=== PATIENT | male | born 1940 | race Caucasian/White ===

== ENCOUNTER 2017-09-30 11:51 | Observation (INO) | payer MEDICARE, OTHER ==
--- NOTE | 2017-09-30 12:42 | EDM.PDOC ---
ED HPI GENERAL MEDICAL PROBLEM - General Chief Complaint: Lower Extremity Injury/Pain Stated Complaint: FOOT SWELLING BLOOD CLOT [id number] Time Seen by Provider: 09/30/17 12:30 Source of Information: Reports: Patient, Old Records, RN, RN Notes Reviewed History Limitations: Reports: Other (confusion/dementia) - History of Present Illness INITIAL COMMENTS - FREE TEXT/NARRATIVE: Pt presents to ER from home by POV with c/o left leg swelling and tenderness. Records review reveals pt was seen in clinic by Dr. Avalos on September 21, 2017 for the same complaint, had an US and was found to have a left lower extremity DVT. Pt does not recall being seen in clinic, he states "maybe I did see the doctor, I don't remember". He was prescribed Xarelto. The pharmacy confirms that the pt did hand picker the medication, but he states he knows "nothing about a blood clot, or a new medicine". Pt has Hx of dementia. 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 Pt denies chest pain, shortness of breath, or any other symptoms. Pt is unable to provide any further history. Onset: Unknown/Unsure Duration: Constant Location: Reports: Lower Extremity, Left Severity: Moderate Improves with: Reports: None Associated Symptoms: Reports: No Other Symptoms - Related Data Allergies Allergy/AdvReac Type Severity Reaction Status Date / Time lisinopril Allergy Cannot Verified 09/30/17 12:20 Remember Penicillins Allergy Cannot Verified 09/30/17 12:20 Remember atenolol AdvReac Nausea and Verified 09/30/17 12:20 Vomiting calcium containing cmpd Allergy Cannot Uncoded 09/30/17 12:20 Remember Home Meds: Home Meds Amitriptyline [Elavil] 50 mg PO BEDTIME 08/04/13 [History] Aspirin [Delilah Chewable] 81 mg PO DAILY 08/04/13 [History] Diltiazem HCl [Diltiazem 24Hr ER] 240 mg PO DAILY 08/04/13 [History] Famotidine [Pepcid] 20 mg PO BID 08/04/13 [History] Hydrochlorothiazide 25 mg PO DAILY 08/04/13 [History] Isosorbide Dinitrate 30 mg PO DAILY 08/04/13 [History] Metoprolol Tartrate 100 mg PO BID 08/04/13 [History] Polyethylene Glycol 3350 [MiraLAX] 17 gm PO DAILY 08/04/13 [History] Sennosides [Senna] 2 tab PO BEDTIME 08/04/13 [History] Simvastatin [Zocor] 10 mg PO BEDTIME 08/04/13 [History] Sulindac [Clinoril] 200 mg PO BIDM 08/04/13 [History] hydrALAZINE [Apresoline] 10 mg PO Q8H 08/04/13 [History] Rivaroxaban [Xarelto] 15 mg PO DAILY 09/30/17 [History] Past Medical History Cardiovascular History: Reports: None, Afib, CAD, Hypertension Genitourinary History: Reports: Retention, Urinary Neurological History: Reports: CVA Other Neuro History: subdural hematoma Psychiatric History: Reports: Dementia, Other (See Below) Other Psychiatric History: debility Hematologic History: Reports: Other (See Below) Other Hematologic History: thrombocytonpenia,erythroctosis - Past Surgical History Neurological Surgical History: Reports: Other (See Below) Other Neurological Surgeries/Procedures: craniotomy Social & Family History - Family History Family Medical History: Unobtainable (pt unsure) - Living Situation & Occupation Living situation: Reports: Single, with Family (with brother) Occupation: Retired Review of Systems - Review of Systems Review Of Systems: ROS reveals no pertinent complaints other than HPI. ED EXAM, GENERAL - Physical Exam Exam: See Below Exam Limited By: Altered Mental Status (confusion/dementia) General Appearance: Alert, WD/WN, No Apparent Distress Nose: Normal Inspection Throat/Mouth: Normal Inspection, Normal Voice, No Airway Compromise Head: Atraumatic, Normocephalic Neck: Normal Inspection, Supple, Non-Tender, Full Range of Motion Respiratory/Chest: No Respiratory Distress, Lungs Clear, Normal Breath Sounds, No Accessory Muscle Use, Chest Non-Tender Cardiovascular: Regular Rate, Rhythm GI/Abdominal: Normal Bowel Sounds, Soft, Non-Tender (Male) Exam: Deferred Rectal (Males) Exam: Deferred Back Exam: Normal Inspection, Full Range of Motion Extremities: Normal Range of Motion, Normal Capillary Refill, Jyoti's Sign (left ), Other (Rt lower extremity is normal to exam, non-tender, no edema). No: Joint Swelling Neurological: Alert, CN II-XII Intact, Normal Gait, No Motor/Sensory Deficits, Memory Loss Recent Events Psychiatric: Normal Affect, Normal Mood Skin Exam: Warm, Dry, Intact, Normal Color, No Rash Course - Vital Signs Last Recorded V/S: Last Vital Signs Temp 36.7 C 09/30/17 12:46 Pulse 86 09/30/17 12:46 Resp 12 09/30/17 12:46 BP 223/127 H 09/30/17 12:46 Pulse Ox 95 09/30/17 12:46 - Orders/Labs/Meds Orders: Active Orders 24 hr Category Date Time Status Metoprolol Tartrate [Lopressor] Med 09/30/17 13:05 Once 50 mg PO ONETIME ONE hydrALAZINE [Apresoline] Med 09/30/17 13:04 Once 25 mg PO ONETIME ONE Meds: Medications Discontinued Medications Generic Name Dose Route Start Last Admin Trade Name Freq PRN Reason Stop Dose Admin Enoxaparin Sodium 100 mg 09/30/17 13:03 Lovenox SUBCUT 09/30/17 13:04 ONETIME ONE - Radiology Interpretation Free Text/Narrative:: Left lower extremity venous duplex US from [facility] dated 09/21/17 reviewed by me, and copied to chart. Departure - Departure Time of Disposition: 13:09 (admit to Dr. Reynolds) Disposition: Refer to Observation Condition: Fair Clinical Impression: Hypertension, uncontrolled, Noncompliance w/medication treatment due to intermit use of medication Left leg DVT Qualifiers: Affected thrombotic vein of extremity: femoral Chronicity: acute Qualified Code (s): I82.412 - Acute embolism and thrombosis of left femoral vein Dementia Qualifiers: Dementia type: unspecified type Dementia behavioral disturbance: without behavioral disturbance Qualified Code(s): F03.90 - Unspecified dementia without behavioral disturbance - Discharge Information Forms: ED Department Discharge - My Orders Last 24 Hours: My Active Orders 09/30/17 13:04 hydrALAZINE [Apresoline] 25 mg PO ONETIME ONE 09/30/17 13:05 Metoprolol Tartrate [Lopressor] 50 mg PO ONETIME ONE - Assessment/Plan Last 24 Hours: My Active Orders 09/30/17 13:04 hydrALAZINE [Apresoline] 25 mg PO ONETIME ONE 09/30/17 13:05 Metoprolol Tartrate [Lopressor] 50 mg PO ONETIME ONE
[2017-09-30] MEDS ORDERED: Enoxaparin 100 MG/1 ML Syringe SUBCUT ONE (13:03)
[2017-09-30] MEDS ORDERED: hydrALAZINE 25 MG Tab PO ONE (13:04)
[2017-09-30] MEDS ORDERED: Metoprolol Tartrate 50 MG Tab PO ONE (13:05)
[2017-09-30] MEDS ORDERED: oxyCODONE 5 MG Tab PO PRN (15:13)
[2017-09-30] MEDS ORDERED: Acetaminophen 325 MG Tab PO PRN (15:13)
[2017-09-30] MEDS ORDERED: Morphine 2 MG/ML Syringe IVPUSH PRN (15:13)
--- NOTE | 2017-09-30 15:25 | PCM.HP ---
H&P History of Present Illness - General Date of Service: 09/30/17 Admit Problem/Dx: Admission Diagnosis/Problem Admission Diagnosis/Problem DVT, Deep venous thrombosis of lower extremity Source of Information: Patient History Limitations: Reports: Other (Dementia) - History of Present Illness Initial Comments - Free Text/Narative: 77-year-old male with a past medical history of high blood pressure, hyperlipidemia, dementia presents with left leg swelling. Medical Records review reveals that the patient was seen in clinic by Dr. Avalos on September 21, 2017 for the same complaint and he was diagnosed with a left lower extremity DVT. This was confirmed with an ultrasound. She was prescribed Xarelto and pharmacy confirms that he picked up the medication. The patient however does not recall being seen in clinic a week ago. He does not recall seeing a doctor for his present complaints and does not recall being prescribed any new medication. The patient has a history of dementia. 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 He states he is able to do his ADLs and some of his IADLs. He states he does not drive but that his brother drives. He cannot recall his age, and during conversation easily gets confused Pt denies chest pain, shortness of breath, palpitations, abdominal pain, or any other symptoms. - Related Data Allergies/Adverse Reactions: Allergies Allergy/AdvReac Type Severity Reaction Status Date / Time lisinopril Allergy Cannot Verified 09/30/17 12:20 Remember Penicillins Allergy Cannot Verified 09/30/17 12:20 Remember atenolol AdvReac Nausea and Verified 09/30/17 12:20 Vomiting calcium containing cmpd Allergy Cannot Uncoded 09/30/17 12:20 Remember Home Medications: Home Meds Famotidine [Pepcid] 20 mg PO BID 08/04/13 [History] Metoprolol Tartrate 100 mg PO BID 08/04/13 [History] Polyethylene Glycol 3350 [MiraLAX] 17 gm PO DAILY 08/04/13 [History] Sennosides [Senna] 2 tab PO BEDTIME 08/04/13 [History] hydrALAZINE [Apresoline] 10 mg PO Q8H 08/04/13 [History] Chlorthalidone 25 mg PO DAILY 09/30/17 [History] Diltiazem HCl [Cartia Xt] 240 mg PO DAILY 09/30/17 [History] Gabapentin [Neurontin] 300 mg PO BEDTIME 09/30/17 [History] Isosorbide Mononitrate [Isosorbide Mononitrate ER] 30 mg PO DAILY 09/30/17 [ History] Nortriptyline 50 mg PO BEDTIME 09/30/17 [History] Potassium Chloride 20 meq PO DAILY 09/30/17 [History] Rivaroxaban [Xarelto] 15 mg PO DAILY 09/30/17 [History] atorvaSTATin [Lipitor] 10 mg PO DAILY 09/30/17 [History] Past Medical History Cardiovascular History: Reports: Afib, CAD, Hypertension Genitourinary History: Reports: Retention, Urinary, Urinary Incontinence Musculoskeletal History: Reports: Fracture, Other (See Below) Other Musculoskeletal History: "broke leg, unsure which one" Neurological History: Reports: CVA Other Neuro History: subdural hematoma Psychiatric History: Reports: Dementia, Other (See Below) Other Psychiatric History: debility Hematologic History: Reports: Other (See Below) Other Hematologic History: thrombocytonpenia,erythroctosis - Past Surgical History HEENT Surgical History: Reports: Adenoidectomy, Tonsillectomy Cardiovascular Surgical History: Reports: None GI Surgical History: Reports: Appendectomy, Colonoscopy Male Surgical History: Reports: None Neurological Surgical History: Reports: Other (See Below) Other Neurological Surgeries/Procedures: craniotomy Musculoskeletal Surgical History: Reports: None Social & Family History - Family History Family Medical History: Unobtainable - Tobacco Use Smoking Status *Q: Former Smoker Used Tobacco, but Quit: Yes Month/Year Tobacco Last Used: 2009 - Caffeine Use Caffeine Use: Reports: Coffee - Recreational Drug Use Recreational Drug Use: No - Living Situation & Occupation Living situation: Reports: Single, with Family (with brother) Occupation: Retired H&P Review of Systems - Review of Systems: Review Of Systems: ROS reveals no pertinent complaints other than HPI. Exam - Exam Exam: See Below - Vital Signs Vital Signs: Last Vital Signs Temp 36.4 C 09/30/17 13:40 Pulse 76 09/30/17 13:40 Resp 20 09/30/17 13:40 BP 207/118 H 09/30/17 13:40 Pulse Ox 97 09/30/17 13:40 Weight: 96.162 kg - Exam General: Alert HEENT: Conjunctiva Clear Neck: Supple Lungs: Clear to Auscultation Cardiovascular: Regular Rate, Regular Rhythm GI/Abdominal Exam: Normal Bowel Sounds (Male) Exam: No Hernia Extremities: Other (Left lower leg swelling, mild tenderness) Problem List Initiated/Reviewed/Updated: Yes Orders Last 24hrs: Active Orders 24 hr Category Date Time Status Patient Status [ADT] Routine ADT 09/30/17 15:13 Ordered Oxygen Therapy [RC] PRN Care 09/30/17 15:13 Ordered VTE/DVT Education [RC] PER UNIT ROUTINE Care 09/30/17 15:13 Ordered Vital Signs [RC] Q4H Care 09/30/17 15:13 Ordered Consult to Case Management [CONS] Routine Cons 09/30/17 15:13 Ordered Consult to Appliance Service Representative [CONS] Routine Cons 09/30/17 15:13 Ordered Regular Diet [DIET] Diet 09/30/17 Dinner Ordered Acetaminophen [Tylenol] Med 09/30/17 15:13 Ordered 650 mg PO Q4H PRN Chlorthalidone Med 10/01/17 09:00 Ordered 25 mg PO DAILY Diltiazem HCl [Cartia Xt] Med 10/01/17 09:00 Ordered 240 mg PO DAILY Famotidine [Pepcid] Med 09/30/17 21:00 Ordered 20 mg PO BID Gabapentin [Neurontin] Med 09/30/17 21:00 Ordered 300 mg PO BEDTIME Isosorbide Mononitrate [Imdur] Med 10/01/17 09:00 Ordered 30 mg PO DAILY Metoprolol Tartrate Med 09/30/17 21:00 Ordered 100 mg PO BID Morphine Med 09/30/17 15:13 Ordered 2 mg IVPUSH Q2H PRN Nortriptyline Med 09/30/17 21:00 Ordered 50 mg PO BEDTIME Polyethylene Glycol 3350 [MiraLAX] Med 10/01/17 09:00 Ordered 17 gm PO DAILY Potassium Chloride [Potassium Chloride] Med 10/01/17 09:00 Ordered 20 meq PO DAILY Rivaroxaban Med 09/30/17 21:00 Ordered 15 mg PO BID Sennosides [Senna] Med 09/30/17 21:00 Ordered 2 tab PO BEDTIME atorvaSTATin [Lipitor] Med 10/01/17 09:00 Ordered 10 mg PO DAILY hydrALAZINE [Apresoline] Med 09/30/17 15:30 Ordered 10 mg PO Q8H oxyCODONE Med 09/30/17 15:13 Ordered 5 mg PO Q4H PRN Resuscitation Status Routine Resus Stat 09/30/17 15:13 Ordered Medication Orders Acetaminophen (Tylenol) 650 mg PO Q4H PRN PRN Reason: Pain (Mild 1-3)/fever Atorvastatin Calcium (Lipitor) 10 mg PO DAILY [facility] Chlorthalidone (Chlorthalidone) 25 mg PO DAILY NIA Famotidine (Pepcid) 20 mg PO BID NIA Gabapentin (Neurontin) 300 mg PO BEDTIME NIA Isosorbide Mononitrate (Imdur) 30 mg PO DAILY [facility] Morphine Sulfate (Morphine) 2 mg IVPUSH Q2H PRN PRN Reason: Pain (severe 7-10) Non-Formulary Medication (Diltiazem Hcl [Cartia Xt]) 240 mg PO DAILY [facility] Non-Formulary Medication (Hydralazine [Apresoline]) 10 mg PO Q8H [facility]IA Non-Formulary Medication (Metoprolol Tartrate) 100 mg PO BID [facility] Non-Formulary Medication (Potassium Chloride [Potassium Chloride]) 20 meq PO DAILY [facility] Non-Formulary Medication (Rivaroxaban) 15 mg PO BID [facility]IA Non-Formulary Medication (Sennosides [Senna]) 2 tab PO BEDTIME NIA Nortriptyline HCl (Nortriptyline) 50 mg PO BEDTIME NIA Oxycodone HCl (Oxycodone) 5 mg PO Q4H PRN PRN Reason: Pain (moderate 4-6) Polyethylene Glycol (Miralax) 17 gm PO DAILY [facility] Assessment/Plan Comment:: #Left lower extremity DVT Start several to 50 mg twice a day for 3 weeks, then 20 mg daily for at least 3 months sample worker consult for home care #Uncontrolled essential hypertension It's very likely that the patient is not taking medications at home due to his dementia sample worker consult for home care Restart home blood pressure medication #Dementia Avoid delirium during hospital admission Avoid benzodiazepines #Hyperlipidemia Continue statin
[2017-09-30] MEDS ORDERED: Non-Formulary Medication 1 Each (Hydralazine [Apresoline] 10 MG) PO SCH (15:30)
[2017-09-30] MEDS ORDERED: amLODIPine 5 MG Tab PO ONE (16:38)
[2017-09-30 17:28] LABS: ANION GAP 11.7; CHLORIDE,CL 104 mmol/L (101-111); SODIUM,NA 139 mmol/L (135-145)
[2017-09-30] MEDS ORDERED: hydrALAZINE 25 MG Tab PO SCH (18:00)
[2017-09-30] MEDS: Metoprolol Tartrate 50 MG Tab PO SCH (20:44)
[2017-09-30] MEDS: Famotidine 20 MG Tab PO SCH (20:49)
[2017-09-30] MEDS: Rivaroxaban 10 MG Tab PO SCH (20:49)
[2017-09-30] MEDS ORDERED: Gabapentin 300 MG Cap PO SCH (21:00)
[2017-09-30] MEDS ORDERED: Nortriptyline 25 MG Cap PO SCH (21:00)
[2017-09-30] MEDS: hydrALAZINE 25 MG Tab PO SCH (22:11)
[2017-10-01] MEDS: hydrALAZINE 25 MG Tab PO SCH (05:53)
[2017-10-01] MEDS ORDERED: Diltiazem 240 MG Cap.ER PO SCH (09:00)
[2017-10-01] MEDS ORDERED: Isosorbide Mononitrate 30 MG Tab.ER PO SCH (09:00)
[2017-10-01] MEDS ORDERED: atorvaSTATin 10 MG Tab PO SCH (09:00)
[2017-10-01] MEDS ORDERED: Potassium Chloride 10 MEQ Tab.ER PO SCH (09:00)
[2017-10-01] MEDS ORDERED: Polyethylene Glycol 3350 Powder 17 GM Packet PO SCH (09:00)
[2017-10-01] MEDS ORDERED: Chlorthalidone 25 MG Tab PO SCH (09:00)
[2017-10-01] MEDS: Famotidine 20 MG Tab PO SCH (10:06)
[2017-10-01] MEDS: Metoprolol Tartrate 50 MG Tab PO SCH (10:07)
[2017-10-01] MEDS: Rivaroxaban 10 MG Tab PO SCH (10:08)
--- NOTE | 2017-10-01 10:59 | PCM.DCSUM1 ---
Discharge Summary - Hospital Course Free Text/Narrative:: 77-year-old male with a past medical history of high blood pressure, hyperlipidemia, dementia presents with left leg swelling. Medical Records review reveals that the patient was seen in clinic by Dr. Avalos on September 21, 2017 for the same complaint and he was diagnosed with a left lower extremity DVT. This was confirmed with an ultrasound. She was prescribed Xarelto and pharmacy confirms that he picked up the medication. The patient however does not recall being seen in clinic a week ago. He does not recall seeing a doctor for his present complaints and does not recall being prescribed any new medication. The patient has a history of dementia. 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 He states he is able to do his ADLs and some of his IADLs. He states he does not drive but that his brother drives. He cannot recall his age, and during conversation easily gets confused Pt denies chest pain, shortness of breath, palpitations, abdominal pain, or any other symptoms. During the admission, the patient's blood pressure was elevated. He was given oral medications and blood pressure responded appropriately. It is very likely that the patient has not been taking his blood pressure medication at home due to dementia. The patient's sister was called. Patient's brother was also present at bedside. Home health services were arranged by the show worker. Xarelto prescription was corrected to 15 mg twice a day for 21 days, and then 20 mg daily for at least 3 months. - Discharge Data Discharge Date: 10/01/17 Discharge Disposition: Home, Self-Care 01 Condition: Good - Patient Summary/Data Consults: Consultations 09/30/17 15:13 Consult to Case Management [CONS] Routine Consult to Manager Math [CONS] Routine - Patient Instructions Diet: Regular Diet as Tolerated Activity: As Tolerated Showering/Bathing: May Shower - Discharge Plan Prescriptions/Med Rec: Rivaroxaban [Xarelto] 15 mg PO BID 21 Days #42 tablet Home Medications: Home Meds Famotidine [Pepcid] 20 mg PO BID 08/04/13 [History] Metoprolol Tartrate 100 mg PO BID 08/04/13 [History] Polyethylene Glycol 3350 [MiraLAX] 17 gm PO DAILY 08/04/13 [History] Sennosides [Senna] 2 tab PO BEDTIME 08/04/13 [History] hydrALAZINE [Apresoline] 10 mg PO Q8H 08/04/13 [History] Aspirin [Halfprin] 81 mg PO DAILY 09/30/17 [History] Chlorthalidone 25 mg PO DAILY 09/30/17 [History] Diltiazem HCl [Cartia Xt] 240 mg PO DAILY 09/30/17 [History] Gabapentin [Neurontin] 300 mg PO BEDTIME 09/30/17 [History] Isosorbide Mononitrate [Isosorbide Mononitrate ER] 30 mg PO DAILY 09/30/17 [ History] Nortriptyline 50 mg PO BEDTIME 09/30/17 [History] Potassium Chloride 20 meq PO DAILY 09/30/17 [History] atorvaSTATin [Lipitor] 10 mg PO DAILY 09/30/17 [History] Rivaroxaban [Xarelto] 15 mg PO BID 21 Days #42 tablet 10/01/17 [Rx] Forms: ED Department Discharge Referrals: Bridger Cassidy MD [Primary Care Provider] - - Discharge Summary/Plan Comment DC Time >30 min.: Yes - Patient Data Vitals - Most Recent: Last Vital Signs Temp 36.3 C 10/01/17 07:00 Pulse 72 10/01/17 10:07 Resp 20 10/01/17 07:00 BP 145/91 H 10/01/17 10:07 Pulse Ox 92 L 10/01/17 07:00 Weight - Most Recent: 94.075 kg I&O - Last 24 hours: Intake & Output 09/30/17 10/01/17 10/01/17 22:59 06:59 14:59 Intake Total 400 150 Balance 400 150 Lab Results - Last 24 hrs: Laboratory Results - last 24 hr 09/30/17 Range/Units 17:02 Sodium 139 (135-145) mmol/L Potassium 3.7 (3.6-5.0) mmol/L Chloride 104 (101-111) mmol/L Carbon Dioxide 27.0 (21.0-31.0) mmol/L Anion Gap 11.7 BUN 15 (7-18) mg/dL Creatinine 0.7 (0.6-1.3) mg/dL Est Cr Clr Drug Dosing 95.46 mL/min Estimated GFR (MDRD) > 60 Glucose TNP Calcium 9.2 (8.4-10.2) mg/dl Med Orders - Current: Current Medications Acetaminophen (Tylenol) 650 mg PO Q4H PRN PRN Reason: Pain (Mild 1-3)/fever Atorvastatin Calcium (Lipitor) 10 mg PO DAILY [facility] Last Admin: 10/01/17 10:06 Dose: 10 mg Chlorthalidone (Chlorthalidone) 25 mg PO DAILY [facility] Last Admin: 10/01/17 10:05 Dose: 25 mg Diltiazem HCl (Dilacor Xr) 240 mg PO DAILY [facility] Famotidine (Pepcid) 20 mg PO BID [facility] Last Admin: 10/01/17 10:06 Dose: 20 mg Gabapentin (Neurontin) 300 mg PO BEDTIME [facility] Last Admin: 09/30/17 20:48 Dose: 300 mg Hydralazine HCl (Apresoline) 25 mg PO Q8H [facility] Last Admin: 10/01/17 05:53 Dose: 25 mg Isosorbide Mononitrate (Imdur) 30 mg PO DAILY [facility] Last Admin: 10/01/17 10:06 Dose: 30 mg Metoprolol Tartrate (Lopressor) 100 mg PO BID [facility] Last Admin: 10/01/17 10:07 Dose: 100 mg Nortriptyline HCl (Nortriptyline) 50 mg PO BEDTIME [facility] Last Admin: 09/30/17 20:47 Dose: 50 mg Oxycodone HCl (Oxycodone) 5 mg PO Q4H PRN PRN Reason: Pain (moderate 4-6) Polyethylene Glycol (Miralax) 17 gm PO DAILY [facility] Last Admin: 10/01/17 10:08 Dose: 17 gm Potassium Chloride (Klor-Con 10) 20 meq PO DAILY [facility] Last Admin: 10/01/17 10:07 Dose: 20 meq Rivaroxaban (Xarelto) 15 mg PO BID [facility] Last Admin: 10/01/17 10:08 Dose: 15 mg Senna/Docusate Sodium (Senna Plus) 2 tab PO BEDTIME [facility] Last Admin: 09/30/17 20:48 Dose: 2 tab Discontinued Medications Amlodipine Besylate (Norvasc) 10 mg PO ONETIME ONE Stop: 09/30/17 16:39 Last Admin: 09/30/17 17:02 Dose: 10 mg Enoxaparin Sodium (Lovenox) 100 mg SUBCUT ONETIME ONE Stop: 09/30/17 13:04 Last Admin: 09/30/17 13:27 Dose: 100 mg Hydralazine HCl (Apresoline) 25 mg PO ONETIME ONE Stop: 09/30/17 13:05 Last Admin: 09/30/17 13:27 Dose: 25 mg Hydralazine HCl (Apresoline) 25 mg PO Q8H [facility] Last Admin: 09/30/17 19:29 Dose: Not Given Metoprolol Tartrate (Lopressor) 50 mg PO ONETIME ONE Stop: 09/30/17 13:06 Last Admin: 09/30/17 13:17 Dose: 50 mg Morphine Sulfate (Morphine) 2 mg IVPUSH Q2H PRN PRN Reason: Pain (severe 7-10) Non-Formulary Medication (Hydralazine [Apresoline]) 10 mg PO Q8H [facility] Last Admin: 09/30/17 19:30 Dose: Not Given
[2017-10-01 11:10] VITALS: BP 121/82
== END 2017-10-01 13:30 | disposition home or self-care (01) ==
LOC: DL.ED 11:51 → INTOOBSV 13:09 → DL.MS 13:09
PROVIDERS: ADMIT Hospitalist; ATTEND Hospitalist
DX: I82.402 Acute embolism and thrombosis of unspecified deep veins of left lower extremity (principal); I10 Essential (primary) hypertension; I25.10 Atherosclerotic heart disease of native coronary artery without angina pectoris; I48.91 Unspecified atrial fibrillation; E78.5 Hyperlipidemia, unspecified; F03.90 Unspecified dementia, unspecified severity, without behavioral disturbance, psychotic disturbance, mood disturbance, and anxiety; Z79.02 Long term (current) use of antithrombotics/antiplatelets; Z79.82 Long term (current) use of aspirin; Z79.899 Other long term (current) drug therapy; Z88.0 Allergy status to penicillin; Z88.8 Allergy status to other drugs, medicaments and biological substances; Z87.891 Personal history of nicotine dependence
CPT/HCPCS: 36415; 80048; 99283; 99284; A9270; J1650; 96372; G0378

== ENCOUNTER 2019-12-13 07:17 | Day surgery (SDC) | payer MEDICARE, OTHER ==
[2019-12-13] MEDS ORDERED: Sodium Chloride 0.9% 10 ML Syringe IV ONE (07:18)
[2019-12-13] MEDS ORDERED: Dexamethasone 4 MG/ML SDV IV ONE (07:18)
[2019-12-13] MEDS ORDERED: Midazolam 1 MG/ML 2 ML SDV IV ONE (07:18)
[2019-12-13] MEDS ORDERED: Sodium Chloride 0.9% 10 ML Syringe FLUSH PRN (07:30)
[2019-12-13] MEDS ORDERED: Tropicamide 1% Ophth Soln 15 ML Bottle EYELF ONE (07:30)
[2019-12-13] MEDS ORDERED: Timolol Maleate 0.5% Ophth Soln 5 ML Bottle EYELF ONE (07:30)
[2019-12-13] MEDS ORDERED: Phenylephrine 10% Ophth Soln 5 ML Bot EYELF PRN (07:30)
[2019-12-13] MEDS ORDERED: Ondansetron 4 MG/2 ML SDV IVPUSH PRN (07:30)
[2019-12-13] MEDS ORDERED: Acetaminophen 325 MG Tab PO PRN (07:30)
[2019-12-13] MEDS ORDERED: Proparacaine 0.5% Ophth Soln 15 ML Bottle EYELF ONE (07:30)
[2019-12-13] MEDS ORDERED: Povidone-Iodine 5% Sterile Ophth Soln 30 ML Bottle EYELF ONE ×2 (07:30→08:49)
[2019-12-13] MEDS ORDERED: Phenylephrine 10% Ophth Soln 5 ML Bot EYELF ONE ×2 (07:30→08:50)
[2019-12-13] MEDS ORDERED: Moxifloxacin 0.5% Ophth Soln 3 ML Bottle EYELF ONE (07:30)
[2019-12-13] MEDS ORDERED: Dilation Soln 1 EA EACH EYELF ONE (07:31)
[2019-12-13] MEDS ORDERED: Apraclonidine 0.5% Ophth Soln 5 ML Bot EYELF ONE (08:49)
[2019-12-13] MEDS ORDERED: Lidocaine 1% 30 ML SDV ONE (08:49)
[2019-12-13] MEDS ORDERED: Tetracaine HCl/PF 0.5% 4 ML Bottle EYELF ONE (08:49)
[2019-12-13] MEDS ORDERED: Vancomycin 500 MG SDV EYELF ONE (08:50)
[2019-12-13] MEDS ORDERED: Balanced Salt Solution Ophth Irrig 500 ML Bottle IOCULAR ONE (08:50)
[2019-12-13] MEDS ORDERED: Chondroitin Sulfate/Hyaluronate Sodium Ophth Inj 0.75 ML Syringe EYELF ONE (08:50)
[2019-12-13] MEDS ORDERED: Diclofenac Sodium 0.1% Ophth Soln 5 ML Bottle EYELF ONE (08:50)
[2019-12-13 09:28] VITALS: BP 140/99; PULSE 64
--- NOTE | 2019-12-14 09:14 | OR ---
DATE: 12/13/2019 PREOPERATIVE DIAGNOSIS: Visually significant cataract, left eye. POSTOPERATIVE DIAGNOSIS: Visually significant cataract, left eye. PROCEDURE: Extracapsular cataract extraction with intraocular lens implant, left eye. ANESTHESIA: Topical/local MAC. COMPLICATIONS: None. INDICATION: Mr. Andrea was seen in the clinic. His examination revealed visually significant cataract and severe astigmatism. He is unhappy with his vision. Caregivers note that his vision is limited. I explained options, offered cataract surgery, and I explained risks, including, but not limited to, infection, retinal detachment, loss of vision, need for additional surgery, and risks associated with anesthesia. We discussed implant options. He has requested surgery with a toric implant. He understands that he may still require glasses for some activities following surgery. OPERATIVE DESCRIPTION: After informed consent was obtained and the risks, benefits, and alternatives were explained, the patient was brought to the operative suite and topical anesthesia was administered. The patient was then prepped and draped in the sterile fashion and attention was placed on the left eye. A sterile lid speculum was placed into the left eye to allow operative exposure. A full-thickness paracentesis was made in the temporal portion of the operative eye. Preservative-free lidocaine 0.1 mL was injected into the anterior chamber followed by viscoelastic. A full-thickness corneal incision was then made into the anterior chamber. A bent needle cystotome was used to create a small annel in the anterior capsule. The capsulorrhexis forceps was then used to create a 360-degree curvilinear capsulorrhexis. The nucleus was then removed using a phacoemulsification handpiece and the remaining cortical material was then removed with irrigation and aspiration handpiece. Following removal of the cortical material, the capsular bag was then inspected and noted to be free of any holes or tears. Viscoelastic was then injected into the capsular bag and the intraocular lens was inserted into the capsular bag. The implant was oriented to correspond with preoperative corneal harp made with the patient in the upright position. The viscoelastic material was then removed from both the anterior and posterior chambers and from behind the IOL. The lens and capsular bag were then reinspected. The IOL was well centered and the capsular bag intact. The wound and paracentesis sites were inspected and hydrated with balanced saline solution. Both were found to be self-sealing. The intraocular pressure was assessed digitally and found to be within normal range. A good red reflex was noted at the completion of the procedure. No complications occurred during the operation. At the completion of the procedure, Maxitrol, Voltaren, and Iopidine drops were placed into the operative eye. A sterile eye shield was placed over the operative eye and the patient was transported to the postoperative recovery area having tolerated the procedure well. Postoperative instructions were given along with a postoperative appointment. The patient was advised to call with any questions or concerns. [facility] /[id number]
== END 2019-12-13 10:07 | disposition home or self-care (01) ==
LOC: DL.SDS 07:17
PROVIDERS: ATTEND Ophthalmology
DX: H26.9 Unspecified cataract (principal); H52.202 Unspecified astigmatism, left eye; I10 Essential (primary) hypertension; Z87.891 Personal history of nicotine dependence; Z79.899 Other long term (current) drug therapy; Z79.82 Long term (current) use of aspirin; Z88.0 Allergy status to penicillin; Z88.8 Allergy status to other drugs, medicaments and biological substances
CPT/HCPCS: 00142; J1100; J2001; J2250; J3370

== ENCOUNTER 2019-12-20 07:53 | Day surgery (SDC) | payer MEDICARE, OTHER ==
[2019-12-20] MEDS ORDERED: Midazolam 1 MG/ML 2 ML SDV IV ONE ×2 (07:54)
[2019-12-20] MEDS ORDERED: Dexamethasone 4 MG/ML SDV IV ONE ×2 (07:54)
[2019-12-20] MEDS ORDERED: Sodium Chloride 0.9% 10 ML Syringe IV ONE ×2 (07:54)
[2019-12-20] MEDS ORDERED: Moxifloxacin 0.5% Ophth Soln 3 ML Bottle EYERT ONE (08:00)
[2019-12-20] MEDS ORDERED: Phenylephrine 10% Ophth Soln 5 ML Bot EYERT ONE (08:00)
[2019-12-20] MEDS ORDERED: Proparacaine 0.5% Ophth Soln 15 ML Bottle EYERT ONE (08:00)
[2019-12-20] MEDS ORDERED: Povidone-Iodine 5% Sterile Ophth Soln 30 ML Bottle EYERT ONE ×2 (08:00→09:11)
[2019-12-20] MEDS ORDERED: Ondansetron 4 MG/2 ML SDV IVPUSH PRN (08:00)
[2019-12-20] MEDS ORDERED: Dilation Soln 1 EA EACH EYERT ONE (08:00)
[2019-12-20] MEDS ORDERED: Phenylephrine 10% Ophth Soln 5 ML Bot EYERT PRN (08:00)
[2019-12-20] MEDS ORDERED: Tropicamide 1% Ophth Soln 15 ML Bottle EYERT ONE (08:00)
[2019-12-20] MEDS ORDERED: Timolol Maleate 0.5% Ophth Soln 5 ML Bottle EYERT ONE (08:00)
[2019-12-20] MEDS ORDERED: Acetaminophen 325 MG Tab PO PRN (08:00)
[2019-12-20] MEDS ORDERED: Sodium Chloride 0.9% 10 ML Syringe FLUSH PRN (08:00)
[2019-12-20] MEDS ORDERED: Proparacaine 0.5% Ophth Soln 15 ML Bottle ONE (08:18)
[2019-12-20] MEDS ORDERED: Tetracaine HCl/PF 0.5% 4 ML Bottle EYERT ONE (09:10)
[2019-12-20] MEDS ORDERED: Apraclonidine 0.5% Ophth Soln 5 ML Bot EYERT ONE ×2 (09:11)
[2019-12-20] MEDS ORDERED: Lidocaine 1% 30 ML SDV ONE (09:11)
[2019-12-20] MEDS ORDERED: Balanced Salt Solution Ophth Irrig 500 ML Bottle IOCULAR ONE (09:11)
[2019-12-20] MEDS ORDERED: Chondroitin Sulfate/Hyaluronate Sodium Ophth Inj 0.75 ML Syringe EYERT ONE (09:11)
[2019-12-20] MEDS ORDERED: Vancomycin 500 MG SDV EYERT ONE (09:12)
[2019-12-20] MEDS ORDERED: Dexamethasone/Neomycin/Polymyxin B Ophth Oint 3.5 GM Tube EYERT ONE (09:12)
[2019-12-20 10:50] VITALS: BP 107/79; PULSE 81
--- NOTE | 2019-12-20 13:54 | OR ---
DATE: 12/20/2019 PREOPERATIVE DIAGNOSIS: Visually significant mixed cataract, right eye. POSTOPERATIVE DIAGNOSIS: Visually significant mixed cataract, right eye. PROCEDURE: Complex cataract right eye with small pupil/Malyugin ring. ANESTHESIA: Topical/local MAC. COMPLICATIONS: None. INDICATION: Mr. Andrea was seen in the clinic. He has complained of a slow progressive decrease in vision. Examination revealed visually significant mixed cataract. I explained options, offered cataract surgery, and I explained risks, including, but not limited to, infection, retinal detachment, loss of vision, need for additional surgery, and risks associated with anesthesia. We discussed implant options. Otoniel and his family requested a toric implant. They voiced understanding with respect to risks and wished to proceed. OPERATIVE DESCRIPTION: After informed consent was obtained and the risks, benefits, and alternatives were explained, the patient was brought to the operative suite and topical anesthesia was administered. The patient was then prepped and draped in the sterile fashion and attention was placed on the right eye. A sterile lid speculum was placed into the right eye to allow operative exposure. A full-thickness paracentesis was made in the temporal portion of the operative eye. Preservative-free lidocaine 0.1 mL was injected into the anterior chamber followed by viscoelastic. A full-thickness corneal incision was then made into the anterior chamber. A bent needle cystotome was used to create a small annel in the anterior capsule. The capsulorrhexis forceps was then used to create a 360-degree curvilinear capsulorrhexis. The nucleus was then removed using a phacoemulsification handpiece and the remaining cortical material was then removed with irrigation and aspiration handpiece. Following removal of the cortical material, the capsular bag was then inspected and noted to be free of any holes or tears. Viscoelastic was then injected into the capsular bag and the intraocular lens was inserted into the capsular bag. The implant was oriented to correspond with preoperative corneal harp made with the patient in the upright position. The viscoelastic material was then removed from both the anterior and posterior chambers and from behind the IOL. The lens and capsular bag were then reinspected. The IOL was well centered and the capsular bag intact. The wound and paracentesis sites were inspected and hydrated with balanced saline solution. Both were found to be self-sealing. The intraocular pressure was assessed digitally and found to be within normal range. A good red reflex was noted at the completion of the procedure. No complications occurred during the operation. At the completion of the procedure, Maxitrol, Voltaren, and Iopidine drops were placed into the operative eye. A sterile eye shield was placed over the operative eye and the patient was transported to the postoperative recovery area having tolerated the procedure well. Postoperative instructions were given along with a postoperative appointment. The patient was advised to call with any questions or concerns. [facility] /[phone]
== END 2019-12-20 10:28 | disposition home or self-care (01) ==
LOC: DL.SDS 07:53
PROVIDERS: ATTEND Ophthalmology
DX: H25.813 Combined forms of age-related cataract, bilateral (principal); I10 Essential (primary) hypertension; E78.5 Hyperlipidemia, unspecified; E78.00 Pure hypercholesterolemia, unspecified; Z79.899 Other long term (current) drug therapy; Z87.891 Personal history of nicotine dependence; Z88.0 Allergy status to penicillin; Z88.8 Allergy status to other drugs, medicaments and biological substances
CPT/HCPCS: 00142; A9270-GY; J1100; J2001; J2250; J3370; V2787-GY

== ENCOUNTER 2021-03-26 15:47 | Emergency (ER) | payer MEDICARE, OTHER ==
[2021-03-26 16:58] LABS: ANION GAP 17.3 mEq/L (7-13); CHLORIDE,CL 101 mmol/L (98-107); SODIUM,NA 137 mmol/L (136-145)
--- NOTE | 2021-03-26 17:15 | EDM.PDOC ---
ED HPI GENERAL MEDICAL PROBLEM - General Chief Complaint: Respiratory Problem Stated Complaint: AMBULANCE Time Seen by Provider: 03/26/21 16:15 Source of Information: Reports: Patient History Limitations: Reports: No Limitations - History of Present Illness INITIAL COMMENTS - FREE TEXT/NARRATIVE: This 80 yo male patient reports to the ED with increased weakness that was noticed by his caregiver today. The patient reports he has no pain at this time, but has had a wet cough today. The patient denies any additional symptoms. The patient does have a history of dementia (thus the need for the caregiver). The patient's caregiver also reports the patient's abdomen seems to be bloated. Onset: Today Duration: Constant Location: Reports: Generalized Quality: Reports: Other Severity: Moderate Improves with: Reports: None Worsens with: Reports: None Context: Reports: Other Associated Symptoms: Reports: No Other Symptoms - Related Data Allergies Allergy/AdvReac Type Severity Reaction Status Date / Time lisinopril Allergy Cannot Verified 03/26/21 17:55 Remember Penicillins Allergy Cannot Verified 03/26/21 17:55 Remember atenolol AdvReac Nausea and Verified 03/26/21 17:55 Vomiting calcium containing cmpd Allergy Cannot Uncoded 03/26/21 17:55 Remember Home Meds: Home Meds Metoprolol Tartrate 100 mg PO BID 08/04/13 [History] Sennosides [Senna] 2 tab PO BEDTIME 08/04/13 [History] hydrALAZINE [Apresoline] 10 mg PO Q8H 08/04/13 [History] Aspirin [Halfprin] 81 mg PO DAILY 09/30/17 [History] Chlorthalidone 25 mg PO DAILY 09/30/17 [History] Isosorbide Mononitrate [Isosorbide Mononitrate ER] 30 mg PO DAILY 09/30/17 [History] Potassium Chloride 20 meq PO TID 09/30/17 [History] atorvaSTATin [Lipitor] 20 mg PO DAILY 09/30/17 [History] dilTIAZem HCL [Cartia Xt] 240 mg PO DAILY 09/30/17 [History] Lactulose [Chronulac] 30 ml PO BEDTIME PRN 12/08/19 [History] Rivaroxaban [Xarelto] 20 mg PO DAILY 12/08/19 [History] Famotidine 20 mg PO BID 12/12/19 [History] Ketorolac [Acular 0.5% Ophth Soln] 1 drop EYELF TID 12/12/19 [History] LORazepam [Lorazepam] 0.5 mg PO BEDTIME PRN 12/12/19 [History] Ofloxacin [Ocuflox 0.3% Ophth Soln] 1 drop EYELF QID 12/12/19 [History] Prednisolone Acetate/Pf [Prednisolone Acet 1% Eye Drop] 1 drop EYELF TID 11/27 08/15 [History] Past Medical History HEENT History: Reports: Cataract Cardiovascular History: Reports: Afib, CAD, High Cholesterol, Hypertension, Pacemaker Respiratory History: Reports: None Gastrointestinal History: Reports: Diverticulosis Genitourinary History: Reports: Retention, Urinary, Urinary Incontinence [employer] History: Musculoskeletal History: Reports: Fracture, Other (See Below) Other Musculoskeletal History: "broke leg, unsure which one" Neurological History: Reports: CVA Other Neuro History: subdural hematoma Psychiatric History: Reports: Anxiety, Dementia, Other (See Below) Other Psychiatric History: debility. Patient has had some anxiety since his brother's recent past but not normally treated for anxiety Endocrine/Metabolic History: Reports: Diabetes, Type II, Other (See Below) Other Endocrine/Metabolic History: Diet controlled. No ordered blood glucose checks Hematologic History: Reports: Other (See Below) Other Hematologic History: thrombocytonpenia,erythroctosis Immunologic History: Reports: None Oncologic (Cancer) History: Reports: None Dermatologic History: Reports: None - Infectious Disease History Infectious Disease History: Reports: None - Past Surgical History Head Surgeries/Procedures: Reports: Craniotomy HEENT Surgical History: Reports: Adenoidectomy, Cataract Surgery, Tonsillectomy Cardiovascular Surgical History: Reports: Pacer Respiratory Surgical History: Reports: None GI Surgical History: Reports: Appendectomy, Colonoscopy Male Surgical History: Reports: None Endocrine Surgical History: Reports: None Neurological Surgical History: Reports: Other (See Below) Other Neurological Surgeries/Procedures: craniotomy(bilateral subdural hematoma) Musculoskeletal Surgical History: Reports: None Social & Family History - Family History Family Medical History: No Pertinent Family History - Caffeine Use Caffeine Use: Reports: Coffee - Living Situation & Occupation Living situation: Reports: Single, with Family (with brother) Occupation: Retired ED ROS GENERAL - Review of Systems Review Of Systems: Comprehensive ROS is negative, except as noted in HPI. ED EXAM, GENERAL - Physical Exam Exam: See Below Exam Limited By: No Limitations General Appearance: Alert, WD/WN, No Apparent Distress, Obese Eye Exam: Bilateral Eye: EOMI, Normal Inspection, PERRL Ears: Normal External Exam, Normal Canal, Hearing Grossly Normal, Normal TMs Nose: Normal Inspection, Normal Mucosa, No Blood Throat/Mouth: Normal Inspection, Normal Lips, Normal Teeth, Normal Gums, Normal Oropharynx, Normal Voice, No Airway Compromise Head: Atraumatic, Normocephalic Neck: Normal Inspection, Supple, Non-Tender, Full Range of Motion Respiratory/Chest: Rhonchi (left lower) Cardiovascular: Normal Peripheral Pulses, Regular Rate, Rhythm, No Edema, No Gallop, No JVD, No Murmur, No Rub GI/Abdominal: Normal Bowel Sounds, Soft, Non-Tender, No Organomegaly, No Abnormal Bruit, No Mass, Distended (Male) Exam: Deferred Rectal (Males) Exam: Deferred Back Exam: Normal Inspection, Full Range of Motion, NT Extremities: Normal Inspection, Normal Range of Motion, Non-Tender, Normal Capillary Refill, No Pedal Edema Neurological: Alert, Oriented, CN II-XII Intact, Normal Cognition, Normal Gait, Normal Reflexes, No Motor/Sensory Deficits Psychiatric: Normal Affect, Normal Mood Skin Exam: Warm, Dry, Intact, Normal Color, No Rash Lymphatic: No Adenopathy #1 Interpretation EKG Date: 03/26/21 Time: 16:38 Rhythm: A-Fib Rate (Beats/Min): 86 [place]: Normal P-Wave: Present QRS: Normal ST-T: Normal QT: Normal Comparison: No Change Course - Vital Signs Last Recorded V/S: Last Vital Signs Temp 100.8 F H 03/26/21 16:01 Pulse 83 03/26/21 16:01 Resp 20 03/26/21 16:01 BP 124/79 03/26/21 16:01 Pulse Ox 92 L 03/26/21 16:01 - Orders/Labs/Meds Orders: Active Orders 24 hr Category Date Time Status CULTURE BLOOD [BC] Stat Lab 03/26/21 16:27 Received UA RFX GLORIA AND CULT IF INDIC [URIN] Urgent Lab 03/26/21 16:34 Ordered Labs: Laboratory Tests 03/26/21 03/26/2103/26/21 Range/Units 16:27 16:27 16:27 WBC 13.7 H (5.0-10.0) 10^3/uL RBC 5.51 (4.6-6.2) 10^6/uL Hgb 17.4 D (14.0-18.0) g/dL Hct 51.4 (40.0-54.0) % MCV 93.3 (80-100) fL MCH 31.6 (27.0-34.0) pg MCHC 33.9 (33.0-35.0) g/dL Plt Count 195 (150-450) 10^3/uL Neut % (Auto) 84.7 H (42.2-75.2) % Lymph % (Auto) 7.2 L (20.5-50.1) % [place] % (Auto) 7.8 (2-8) % Eos % (Auto) 0.1 L (1.0-3.0) % Baso % (Auto) 0.2 (0.0-1.0) % Sodium 137 (136-145) mmol/L Potassium 4.3 (3.5-5.1) mmol/L Chloride 101 (98-107) mmol/L Carbon Dioxide 23 (21-32) mmol/L Anion Gap 17.3 H (7-13) mEq/L BUN 21 H (7-18) mg/dL Creatinine 1.07 (0.70-1.30) mg/dL Est Cr Clr Drug Dosing 55.91 mL/min Estimated GFR (MDRD) > 60 BUN/Creatinine Ratio 19.6 (No establ ref range) Glucose 138 H (70-99) mg/dL Lactic Acid 2.0 (0.4-2.0) mmol/L Calcium 8.6 (8.5-10.1) mg/dL Total Bilirubin 0.9 (0.2-1.0) mg/dL AST 17 (15-37) U/L ALT 21 (16-63) U/L Alkaline Phosphatase 78 (46-116) U/L Troponin I High Sens 19 (<=76) pg/mL Total Protein 6.7 (6.4-8.2) g/dL Albumin 3.1 L (3.4-5.0) g/dL Globulin 3.6 Albumin/Globulin Ratio 0.86 Influenza Type A RNA (NEGATIVE) Influenza Type B RNA (NEGATIVE) SARS-CoV-2 RNA (SAMAN) (NEGATIVE) 03/26/21 Range/Units 16:28 WBC (5.0-10.0) 10^3/uL RBC (4.6-6.2) 10^6/uL Hgb (14.0-18.0) g/dL Hct (40.0-54.0) % MCV (80-100) fL MCH (27.0-34.0) pg MCHC (33.0-35.0) g/dL Plt Count (150-450) 10^3/uL Neut % (Auto) (42.2-75.2) % Lymph % (Auto) (20.5-50.1) % [place] % (Auto) (2-8) % Eos % (Auto) (1.0-3.0) % Baso % (Auto) (0.0-1.0) % Sodium (136-145) mmol/L Potassium (3.5-5.1) mmol/L Chloride (98-107) mmol/L Carbon Dioxide (21-32) mmol/L Anion Gap (7-13) mEq/L BUN (7-18) mg/dL Creatinine (0.70-1.30) mg/dL Est Cr Clr Drug Dosing mL/min Estimated GFR (MDRD) BUN/Creatinine Ratio (No establ ref range) Glucose (70-99) mg/dL Lactic Acid (0.4-2.0) mmol/L Calcium (8.5-10.1) mg/dL Total Bilirubin (0.2-1.0) mg/dL AST (15-37) U/L ALT (16-63) U/L Alkaline Phosphatase (46-116) U/L Troponin I High Sens (<=76) pg/mL Total Protein (6.4-8.2) g/dL Albumin (3.4-5.0) g/dL Globulin Albumin/Globulin Ratio Influenza Type A RNA Negative (NEGATIVE) Influenza Type B RNA Negative (NEGATIVE) SARS-CoV-2 RNA (SAMAN) Negative (NEGATIVE) Meds: Medications Discontinued Medications Generic Name Dose Route Start Last Admin Trade Name Freq PRN Reason Stop Dose Admin Iopamidol 100 ml 03/26/21 18:15 03/26/21 18:44 Iopamidol 612 Mg/Ml 100 Ml Bottle IVPUSH 03/26/21 18:16 100 ml ONETIME ONE Administration Levofloxacin 500 mg 03/26/21 19:31 Levofloxacin 500 Mg Tab PO 03/26/21 19:32 ONETIME ONE Departure - Departure Time of Disposition: 19:34 Disposition: Home, Self-Care 01 Condition: Fair Clinical Impression: Bronchitis - Discharge Information *PRESCRIPTION DRUG MONITORING PROGRAM REVIEWED*: Not Applicable *COPY OF PRESCRIPTION DRUG MONITORING REPORT IN PATIENT BEBE: Not Applicable Instructions: Acute Bronchitis, Adult, Puph-nh-Hgty Forms: ED Department Discharge Care Plan Goals: The patient was advised of the examination, lab and CT results during the visit. The patient was given an oral dose of Levaquin while in the ED. The patient was discharged with a script for Levaquin (500 mg) #7 to take 1 by mouth daily for 7 days. The patient should continue to take her medications as prescribed. If the patient has any additional symptoms or concerns, the patient should either visit his primary care facility or return to the emergency department. Sepsis Event Note (ED) - Focused Exam Vital Signs: Vital Signs Temp Pulse Resp BP Pulse Ox 03/26/21 16:01 100.8 F H 83 20 124/79 92 L - My Orders Last 24 Hours: My Active Orders 03/26/21 16:27 CULTURE BLOOD [BC] Stat 03/26/21 16:34 UA RFX GLORIA AND CULT IF INDIC [URIN] Urgent - Assessment/Plan Last 24 Hours: My Active Orders 03/26/21 16:27 CULTURE BLOOD [BC] Stat 03/26/21 16:34 UA RFX GLORIA AND CULT IF INDIC [URIN] Urgent
[2021-03-26 17:21] LABS: CORONAVIRUS COVID-19 NAA NEGATIVE (NEGATIVE)
[2021-03-26] MEDS: Iopamidol 612 MG/ML 100 ML Bottle IVPUSH ONE (18:44)
--- NOTE | 2021-03-26 19:15 | CT ---
PROCEDURE INFORMATION: Exam: CT Abdomen And Pelvis With Contrast Exam date and time: 03/26/2021 6:40 PM Age: 80 years old Clinical indication: Other: Abdominal bloating, elevated wbc TECHNIQUE: Imaging protocol: Computed tomography of the abdomen and pelvis with contrast. Radiation optimization: All CT scans at this facility use at least one of these dose optimization techniques: automated exposure control; mA and/or kV adjustment per patient size (includes targeted exams where dose is matched to clinical indication); or iterative reconstruction. Contrast material: ISOVUE 300; Contrast volume: 100 ml; Contrast route: INTRAVENOUS (IV); COMPARISON: No relevant prior studies available. FINDINGS: Limitations: Moderate streak/motion artifact. Lungs: Patchy airspace disease and mild bronchial wall thickening in the left lung base. Findings are suspicious for a mild pneumonia/bronchitis. Heart: Heart appears mildly enlarged. Liver: Fatty infiltration of the liver. Gallbladder and bile ducts: No significant abnormality. Pancreas: No significant abnormality. Spleen: No significant abnormality. Adrenal glands: No significant abnormality. Kidneys and ureters: 6 mm stone at the left UVJ/ureterovesicular junction. No evidence of significant associated obstruction/hydroureteronephrosis. Stomach and bowel: Scattered colonic diverticulosis, without evidence of diverticulitis. No acute abnormality. No acute abnormality of the stomach. No acute abnormality of the small bowel. No evidence of bowel obstruction. Appendix: Normal appendix is not seen, however, there are no significant inflammatory changes visualized in the expected location of the appendix to suggest appendicitis. Recommend clinical correlation. Intraperitoneal space: No evidence of free air or free fluid. Vasculature: No acute abnormality. Lymph nodes: No evidence of diffuse pathologic lymphadenopathy. Urinary bladder: No significant abnormality. Reproductive: Prostate gland is enlarged. Bones/joints: Findings compatible with a mild, chronic compression fracture of L3. Soft tissues: Large , triangular shaped pocket of fluid measuring 16 x 8 cm in the posterior subcutaneous fat, in the lumbar soft tissues diffusely. Most likely, this represents focal dependent soft tissue edema. This does not have CT features to suggest an abscess. IMPRESSION: 1. 6 mm stone at the left UVJ/ureterovesicular junction, which is not causing any significant obstruction/hydroureteronephrosis. 2. Findings are suspicious for a mild pneumonia/bronchitis in the left lung base. 3. Otherwise, no significant acute abnormality. 4. Large 16 x 8 cm pocket of fluid in the lumbar subcutaneous fat, most likely representing incidental focal dependent soft tissue edema. This does not have CT features to suggest an abscess. 5. See above for remaining findings.
[2021-03-26] MEDS: Levofloxacin 500 MG Tab PO ONE (19:39)
[2021-03-26 20:12] VITALS: BP 116/63; PULSE 94
== END 2021-03-26 20:00 | disposition home or self-care (01) ==
LOC: DL.ED 15:47
DX: J40 Bronchitis, not specified as acute or chronic (principal); I48.91 Unspecified atrial fibrillation; I25.10 Atherosclerotic heart disease of native coronary artery without angina pectoris; E78.00 Pure hypercholesterolemia, unspecified; I10 Essential (primary) hypertension; E11.9 Type 2 diabetes mellitus without complications; Z88.8 Allergy status to other drugs, medicaments and biological substances; Z88.0 Allergy status to penicillin; Z79.82 Long term (current) use of aspirin; Z79.01 Long term (current) use of anticoagulants; Z79.899 Other long term (current) drug therapy; Z20.822 Contact with and (suspected) exposure to COVID-19
CPT/HCPCS: 0240U; 36415; 74177; 80053; 83605; 84484; 85025; 87040; 93005; 99285; A9270; Q9967